=== PATIENT | female | born 1955 | race Caucasian/White ===

== ENCOUNTER 2017-04-11 10:13 | Emergency (ER) | payer SELFPAY ==
[~2017-04-11] VITALS: Ht 167.6 cm; Wt 72.7 kg
[2017-04-11 10:28] VITALS: BP 156/86
== END 2017-04-11 11:03 | disposition home or self-care (01) ==
LOC: EMS 10:15
DX: S50.312A Abrasion of left elbow, initial encounter (principal); R03.0 Elevated blood-pressure reading, without diagnosis of hypertension; W18.39XA Other fall on same level, initial encounter; Y93.01 Activity, walking, marching and hiking; Y92.89 Other specified places as the place of occurrence of the external cause; Y99.8 Other external cause status
CPT/HCPCS: 99281

== ENCOUNTER 2019-02-08 23:38 | Emergency (ER) | payer MEDICAID ==
[~2019-02-08] VITALS: Ht 167.6 cm; Wt 68.2 kg
[2019-02-08] MEDS ORDERED: METH10TA7 PO (23:53)
[2019-02-08] MEDS ORDERED: METO25XL PO (23:53)
[2019-02-09 03:19] VITALS: BP 137/83
== END 2019-02-09 03:31 | disposition home or self-care (01) ==
LOC: EMS 23:38
DX: S20.211A Contusion of right front wall of thorax, initial encounter (principal); S60.222A Contusion of left hand, initial encounter; S60.221A Contusion of right hand, initial encounter; S80.212A Abrasion, left knee, initial encounter; S80.211A Abrasion, right knee, initial encounter; S00.81XA Abrasion of other part of head, initial encounter; S00.31XA Abrasion of nose, initial encounter; W01.198A Fall on same level from slipping, tripping and stumbling with subsequent striking against other object, initial encounter; Y93.89 Activity, other specified; Y92.89 Other specified places as the place of occurrence of the external cause; Y99.8 Other external cause status
CPT/HCPCS: 71101

== ENCOUNTER 2021-09-05 13:05 | Emergency (ER) | payer MEDICAID ==
[~2021-09-05] VITALS: Ht 167.6 cm; Wt 72.7 kg
[~2021-09-05 13:05] MED LIST: METHI10 PO; METO25XL PO
[2021-09-05] MEDS ORDERED: AMOX1TAB16 PO (15:22)
[2021-09-05 15:28] VITALS: BP 140/80
== END 2021-09-05 15:29 | disposition home or self-care (01) ==
LOC: EMS 13:05
DX: K04.7 Periapical abscess without sinus (principal); Z79.899 Other long term (current) drug therapy
CPT/HCPCS: 99283; Z7502